=== PATIENT | male | born 1945 | race Caucasian/White ===

== ENCOUNTER 2020-04-13 18:45 | Inpatient (IN) | payer MEDICARE ==
[~2020-04-13] VITALS: Ht 170.2 cm; Wt 65.9 kg
--- NOTE | 2020-04-13 18:45 | NUR ---
PT TO ROOM VIA EMS
--- NOTE | 2020-04-13 18:55 | NUR ---
RECIEVED FROM EMS. MOVED TO STRETCHER USING SHEET. PT ASSESSED. PT ALERT AND ORIENTED TO PERSON AND PLACE. REPORTS FELT WEAK AND LAY DOWN IN HIS DRIVEWAY. NOT SURE HOW LONG HE WAS LYING THERE. PT SKIN PINK WARM AND DRY. CHANGED TO GOWN. MONITORS IN PLACE
[2020-04-13 19:17] LABS: HEMATOCRIT 37.7 % (39.0-50.0); HEMOGLOBIN 12.5 g/dl (14.0-18.0); IMMATURE GRANULOCYTES 3.1 % (0.0-5.0); MEAN CELL VOLUME 87.9 fL CALC (80.0-100.0); MEAN CORPUSCULAR HGB 29.1 pG CALC (26.0-32.0); MEAN CORPUSCULAR HGB CONC 33.2 g/dL CAL (32.0-36.0); NEUT# 22.88 thou/uL (1.82-7.42); RED BLOOD COUNT 4.29 mill/uL (4.70-6.10); RED CELL DISTRI WIDTH 11.9 % (11.5-15.5)
--- NOTE | 2020-04-13 19:18 | NUR ---
REPORT GIVEN TO SHIREEN CALI
[2020-04-13 19:27] LABS: ALBUMIN 3.6 g/dL (3.2-5.0); ALKALINE PHOSPHATASE 175 u/l (38-126); ANION GAP 17 (6-22 (CALC)); BILIRUBIN, TOTAL 1.2 mg/dL (0.0-1.4); BUN 41 mg/dL (8-23); BUN/CREATININE RATIO 31 (12-20 (CALC)); CARBON DIOXIDE 19 mmol/l (22-30); CHLORIDE 95 mmol/l (95-108); CREATININE 1.3 mg/dL (0.7-1.3); GFR 54 ML/MIN (>=60 (CALC)); GFR FOR AFR.AMER. > 60 ML/MIN (>=60 (CALC)); POTASSIUM 4.3 mmol/l (3.5-5.1); SGOT/AST 116 u/l (19-48); SODIUM 127 mmol/l (137-146)
--- NOTE | 2020-04-13 19:50 | NUR ---
PT BACK FROM CT. PT STATES HE HAS TO URINATE. URINAL GIVEN TO COLLECT SPECIMEN.
--- NOTE | 2020-04-13 20:20 | NUR ---
PT STATED IT WAS A FALSE ALARM WHEN I WENT TO COLLECT URINE.
--- NOTE | 2020-04-13 20:53 | NUR ---
DR SOSA IN ROOM TO INFORM PT OF PLAN OF ADMIT. COVID SWAB COLLECTED. BP STILL LOW 85/50. DR SOSA STATED TO SEE HOW IT IS AFTER FLUIDS SINCE PT WAS DRY.
--- NOTE | 2020-04-13 21:15 | NUR ---
PT'S FEVER DOWN. CHANGED SHEETS DUE SWEATING. PT STATES HE FEELS MUCH BETTER NOW. PT TO BE ADMITTED.
--- NOTE | 2020-04-13 22:15 | NUR ---
BP UP PT ALL FLUIDS COMPLETED.
--- NOTE | 2020-04-13 23:04 | NUR ---
Admission Note Report Given to: KYRA SEXTON Transported by: X Wheelchair Stretcher Transported with: X Nurse Transporter X Patent IV O2 X Buggyman Location: ICU X [facility]
[2020-04-13 23:15] VITALS: BP 96/55
--- NOTE | 2020-04-13 23:15 | NUR ---
PT TRANSPORTED TO ROOM VIA WHEELCHAIR ACCOMPAINED BY RUBY ON RAILS CONSULTANT. PT ALERT AND ORIENTED X3. NO APPARENT DISTRESS NOTED. PT AMBULATED FROM CHAIR TO BED WITH STEADY GAIT. WATER SAFETY INSTRUCTOR APPLIED. IV SITE APPEARS HEALTHY. PT ORIENTED TO ROOM AND CALL LIGHT SYSTEM. PT SLIGHLTY DIAPHORETIC, BS CHECKED 194. VSS. PT DENIES ANY PAIN OR DISCOMFORT. DISCUSSED POC. PT VERBALIZED UNDERSTANDING. ICE WATER PROVIDED. CALL LIGHT WITHIN REACH. WILL CONTINUE TO MONITOR.
[2020-04-14 04:07] VITALS: BP 86/57
--- NOTE | 2020-04-14 04:07 | NUR ---
PT RESTING IN BED. NO APPARENT DISTRESS NOTED. PT WAKES EASILY, REMAINS ALERT AND ORIENTED X3. PT DENIES ANY DIZZINESS OR LIGHTHEADNESS. IVF INFUSING WITHOUT DIFFICULTY. PT NO LONGER DIAPHORETIC. URINE SAMPLE COLLECTED AND SENT TO LAB. PT DENIES ANY CURRENT WANTS OR NEEDS. CALL LIGHT WITHIN REACH. WILL CONTINUE TO MONITOR.
[2020-04-14 05:38] LABS: URINE BILIRUBIN - DIPSTICK NEGATIVE (NEGATIVE); URINE BLOOD DIPSTICK MODERATE (NEGATIVE); URINE COLOR YELLOW; URINE GLUCOSE - DIPSTICK NEGATIVE (NEGATIVE); URINE KETONE NEGATIVE (NEGATIVE); URINE NITRITE - DIPSTICK NEGATIVE (Negative); URINE PROTEIN - DIPSTICK 30 mg/dL (NEG-TRACE); URINE SPECIFIC GRAVITY 1.015; URINE UROBILINOGEN - DIPSTICK 0.2 E.U./dL (0.2)
[2020-04-14 05:51] VITALS: BP 92/63
[2020-04-14 06:04] LABS: ANION GAP 8 (6-22 (CALC)); BUN 33 mg/dL (8-23); BUN/CREATININE RATIO 34 (12-20 (CALC)); CHLORIDE 103 mmol/l (95-108); GFR > 60 ML/MIN (>=60 (CALC)); GFR FOR AFR.AMER. > 60 ML/MIN (>=60 (CALC)); HEMATOCRIT 33.9 % (39.0-50.0); HEMOGLOBIN 10.9 g/dl (14.0-18.0); IMMATURE GRANULOCYTES 2.8 % (0.0-5.0); MEAN CELL VOLUME 90.6 fL CALC (80.0-100.0); MEAN CORPUSCULAR HGB 29.1 pG CALC (26.0-32.0); MEAN CORPUSCULAR HGB CONC 32.2 g/dL CAL (32.0-36.0); NEUT# 14.01 thou/uL (1.82-7.42); POTASSIUM 3.8 mmol/l (3.5-5.1); RED BLOOD COUNT 3.74 mill/uL (4.70-6.10); RED CELL DISTRI WIDTH 12.2 % (11.5-15.5); SODIUM 132 mmol/l (137-146)
[2020-04-14 06:04] LABS: URINE LEUK ESTERASE LARGE (NEGATIVE)
[2020-04-14 06:08] LABS: URINE BACTERIA FEW hpf; URINE SQUAMOUS EPITHELIAL CELL FEW EPI/hpf (0-FEW); URINE WBC 20-50 WBC/hpf (0-5)
[2020-04-14 06:16] LABS: CARBON DIOXIDE 25 mmol/l (22-30)
--- NOTE | 2020-04-14 08:05 | NUR ---
ASSESSMENT IS COMPLETED: IV SITE IS FREE FROM REDNESS OR EDEMA. HR IS REG, PULSES ARE STRONG X4, ABD IS SOFT WITH ACTIVE BS. BREATH SOUNDS ARE CLEAR, BILATERALLY, TELE MONITOR IN PLACE. CONTINUE TO OSERBVE AND MONITO.
[2020-04-14 10:00] VITALS: BP 102/57
--- NOTE | 2020-04-14 12:45 | NUR ---
PT IS RELAXING IN BED WITH NO DISTRESS NOTED. IV SITE IS FREE FROM REDNESS OR EDEMA.
[2020-04-14 15:00] VITALS: BP 112/66
--- NOTE | 2020-04-14 16:45 | NUR ---
PT CONTINUES TO RELAX WITH NO DISTRESS NOTED. IV SITE IS FREE FROM REDNESS OR EDEMA.
[2020-04-14 19:30] VITALS: BP 114/59
--- NOTE | 2020-04-14 19:55 | NUR ---
REPORT FROM SHELBY RAE. PT RESTING IN BED. NO APPARENT DISTRESS NOTED. ALERT AND ORIENTED X3. PT DENIES ANY PAIN OR SOB. IVF INFUSING WITHOUT DIFFICULTY. PT DENIES ANY CURRENT WANTS OR NEEDS. DISCUSSED POC. PT VERBALIZED UNDERSTANDING. CALL LIGHT WITHIN REACH. WILL CONTINUE TO MONITOR.
[2020-04-14 23:53] VITALS: BP 108/59
--- NOTE | 2020-04-15 00:02 | NUR ---
PT RESTING IN BED. NO APPARENT DISTRESS NOTED. ALERT AND ORIENTED X3. PT DENIES ANY PAIN OR DISCOMFORT. CALL LIGHT WITHIN REACH. WILL CONTINUE TO MONITOR.
--- NOTE | 2020-04-15 04:18 | NUR ---
PT RESTING IN BED WITH EYES CLOSED. NO APPARENT DISTRESS NOTED. RESPIRATIONS EVEN AND UNLABORED. CALL LIGHT WITHIN REACH. WILL CONTINUE TO MONITOR.
[2020-04-15 04:55] VITALS: BP 115/69
[2020-04-15 07:45] VITALS: BP 134/69
--- NOTE | 2020-04-15 07:45 | NUR ---
ASSESSMENT IS COMPLTED: IV SITE IS FREE FROM REDNESS OR EDEMA. HR IS REG,PULSES ARE STRONG X4, ABD IS SOFT WITH ACTIVE BS. BREATH SOUNDS ARE CLEAR,BILATERALLY, TELE MONITOR IN PLACE CONITNUE TO OSBERVE AND MONITOR.
[2020-04-15 09:53] LABS: HEMOGLOBIN 11.9 g/dl (14.0-18.0); MEAN CELL VOLUME 92.2 fL CALC (80.0-100.0); MEAN CORPUSCULAR HGB 28.9 pG CALC (26.0-32.0); MEAN CORPUSCULAR HGB CONC 31.3 g/dL CAL (32.0-36.0); RED BLOOD COUNT 4.12 mill/uL (4.70-6.10); RED CELL DISTRI WIDTH 12.2 % (11.5-15.5)
[2020-04-15 10:12] LABS: ANION GAP 8 (6-22 (CALC)); BUN 16 mg/dL (8-23); BUN/CREATININE RATIO 23 (12-20 (CALC)); CARBON DIOXIDE 27 mmol/l (22-30); CHLORIDE 103 mmol/l (95-108); CREATININE 0.7 mg/dL (0.7-1.3); GFR > 60 ML/MIN (>=60 (CALC)); GFR FOR AFR.AMER. > 60 ML/MIN (>=60 (CALC)); POTASSIUM 3.8 mmol/l (3.5-5.1); SODIUM 133 mmol/l (137-146)
[2020-04-15 10:30] VITALS: BP 106/60
--- NOTE | 2020-04-15 12:45 | NUR ---
PT IS RELAXING IN BED WITH NO DISTRES NOTED. IV SITE IS FREE FROM REDNESS OR EDEMA.
[2020-04-15 15:00] VITALS: BP 97/57
[2020-04-15 20:04] VITALS: BP 105/64
--- NOTE | 2020-04-15 20:20 | NUR ---
UPON ENTERING THE ROOM PT APPEARS STABLE, NO S/O DISTRESS. UPON RECEIVING REPORT, DAY NURSE REPORTED THAT PT IV HAD INFILTRATED EARLIER/SKIN TO LFA NEAR THE AC APPEARS SLIGHTLY EDEMATOUS, BUT OTHERWISE HEALTHY. NO REDNESS OR TENDERNESS. ATTEMPTS WERE MADE AT THIS TIME TO OBTAIN NEW IV ACCESS/UNABLE. WILL FOLLOW-UP WITH ANOTHER NURSE ON THE UNIT TO ATTEMPT ACCESS. PT DENIES ANY OTHER NEEDS. ASSESSMENT COMPLETED AT THIS TIME.
[2020-04-16 00:26] VITALS: BP 112/71
--- NOTE | 2020-04-16 00:40 | NUR ---
PT MEDICATED W/IV ANTIBIOTIC THERAPY. URINAL EMPTIED OF 300CC OF DARK YELLOW CLEAR URINE. PT DENIED ANY OTHER NEEDS. WILL FOLLOW-UP WITH NEW ORDER OV VANCOMYCIN WHEN MEDICATION BECOMES AVAILABLE.
[2020-04-16 04:20] VITALS: BP 114/66
[2020-04-16 07:45] VITALS: BP 131/70
--- NOTE | 2020-04-16 07:45 | NUR ---
ASSESSMENT IS COMPLETED: IV SITE IS FREE FROM REDNESS OR EDEMA. HR IS REG,PULSES ARE STRONG X4, ABD IS SOFT WITH ACTIVE BS. BREATH SOUNDS ARE DIMINISHED. TELE MONITOR IN PLACE. CONTINUE TO OBSERVE AND MONITOR.
[2020-04-16 10:30] VITALS: BP 114/64
--- NOTE | 2020-04-16 12:00 | NUR ---
PTIS RELAXING IN BED , HAS BEEN COUGHING. NO DISTRESS NOTED. IV SITE IS FREE FROM REDNESS OR EDEMA.
[2020-04-16] MEDS ORDERED: OMNICEF300 MG PO (12:04)
--- NOTE | 2020-04-16 14:00 | NUR ---
IV SITE DISCONITNUED CATHETER INTAACT. NO REDNESS OR EDEMA. TELE MONITOR TAKEN OFF . DISCHARGE INSTRUCTIONS GIVEN AND VERBALIZD UNDERSTANDING.
--- NOTE | 2020-04-16 14:10 | NUR ---
CALLED A CAB FOR PT TO GET HOME ALL BELONGINGS. MASK IN PLACE.
--- NOTE | 2020-04-16 14:52 | NUR ---
PT PRESENTS WITH SEPSIS. VANCOMYCIN ORDERED FOR PHARMACY TO DOSE. START VANCOMYCIN 750MG IV Q12H. CHECK VANCO TROUGH 04/17 @ 2100. GOAL TROUGH = 15-20 MCG/ML. PHARMACY WILL CONTINUE TO FOLLOW.
--- NOTE | 2020-04-18 09:51 | NUR ---
Notified Nikki Ponce APRN that patients's 04/13/20 Covid test was incomplete per [facility]. GURVINDER Ponce states patient does not need to be re-tested.
--- NOTE | 2020-04-28 21:56 | NUR ---
LATE ENTRY. PT DID RECEIVE 2 LITERS OF NORMAL SALINE WHILE IN ER. 1 LITER WAS STARTED BY EMS JUST PRIOR TO ARRIVAL AND COMPLETED IN ER AND 2LITER CHARGED BY US.
--- NOTE | 2020-05-02 03:42 | NUR ---
LATE ENTRY- NS 1000ML INITIATED BY EMS AT 1822 PRIOR TO ARRIVAL, COMPLETED BY ED STAFF AT
== END 2020-04-16 14:10 | disposition home or self-care (01) | DRG 872 ==
LOC: ED 18:45 → ED-I 20:35 → ED 21:00 → ED-I 21:01 → MS2 21:01
PROVIDERS: Family Medicine; Internal Medicine; ADMIT Internal Medicine; ATTEND Internal Medicine
DX: A41.9 Sepsis, unspecified organism (principal); N39.0 Urinary tract infection, site not specified; J98.11 Atelectasis; E86.0 Dehydration; I95.9 Hypotension, unspecified; J44.9 Chronic obstructive pulmonary disease, unspecified; B95.4 Other streptococcus as the cause of diseases classified elsewhere; Z87.440 Personal history of urinary (tract) infections; Z20.828 Contact with and (suspected) exposure to other viral communicable diseases
CPT/HCPCS: G0378; J0692; J1650; J3370